=== PATIENT | male | born 1975 | race Caucasian/White ===

== ENCOUNTER 2019-07-30 08:43 | Emergency (ER) | payer SELFPAY ==
[~2019-07-30] VITALS: Ht 182.9 cm; Wt 108.9 kg
[2019-07-30 08:45] VITALS: BP 135/77
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
--- NOTE | 2019-07-30 09:00 | NUR ---
to radiology via [place] accompanied by PD
--- NOTE | 2019-07-30 09:04 | NUR ---
return from radiology
[2019-07-30 09:42] VITALS: BP 135/77
--- NOTE | 2019-07-30 09:43 | NUR ---
PATIENT BIB [place] [employer]. PATIENT EXAMINED BY . PATIENT MEDICALLY CLEARED AND RELEASED IN CUSTODY IN STABLE CONDITION. ORIGINAL PRE-BOOK FORM GIVEN TO OFFICER .
== END 2019-07-30 09:41 ==
LOC: MED 08:43
DX: S43.101A Unspecified dislocation of right acromioclavicular joint, initial encounter (principal); Z02.89 Encounter for other administrative examinations; W17.89XA Other fall from one level to another, initial encounter; Y93.19 Activity, other involving water and watercraft; Y92.89 Other specified places as the place of occurrence of the external cause; Y99.8 Other external cause status
CPT/HCPCS: 73030; 99283